=== PATIENT | female | born 1965 | race Caucasian/White ===

== ENCOUNTER 2018-03-12 01:28 | Emergency (ER) | payer OTHER ==
[~2018-03-12] VITALS: Ht 154.9 cm; Wt 146.5 kg
[~2018-03-12 01:28] MED LIST: ALEVE220 M2 PO; ANTIVERT25 MG PO; ASPIR 8181 M1 PO; ATENOLOL50 MG PO; ATIVAN0.5 MG PO; BACTRIM,SEPT1 TABLET PO; BENADRYL25 MG PO; BENTYL10 MG PO; CIPRO500 MG PO; CLARITIN,ALAVAR10 MG PO; COLACE100 MG PO; CYMBALTA60 MG PO; DULOXETINE HCL60 MG PO; FIORICET 50-301 EACH PO; FLEXERIL10 MG PO; GABAPENTIN300 MG PO; GLUCOPHAGE500 MG PO; HYDROCHLOROTHIA25 MG PO; IBUPROFEN800 MG PO; KLOR-CON M2020 MEQ PO; LEVAQUIN750 MG PO; LORAZEPAM0.5 MG PO; METFORMIN HCL500 M1 PO; MOBIC15 MG PO; MOBIC7.5 MG PO; MOTRIN600 MG PO; MOTRIN800 MG PO; NEURONTIN100 MG PO; NEURONTIN300 MG PO; NORCO 5/3251 TABLET PO; NORCO 7.5/321 TABLET PO; OMEPRAZOLE40 M1 PO; PERCOCET 5/31 TABLET PO; PREDNISONE50 MG PO; PROAIR HFA8.5 GM IH; PROTONIX40 MG PO; REMERON15 M2 PO; REMERON30 M2 PO; ROXICODONE5 MG PO; SKELAXIN800 MG PO; SYMBICORT60 INHALA1 IH; ULTRAM50 MG PO; VALIUM5 MG PO; VOLTAREN75 MG PO; ZOFRAN ODT4 MG PO
[2018-03-12 05:09] LABS: HEMATOCRIT 36.9 % (36.0-46.0); HEMOGLOBIN 12.2 G/DL (11.9-15.5); MCHC 33.1 G/DL (30.0-36.0); MCV 87.6 FL (83-99); PLATELET COUNT 280 K/uL (156-360); RBC DIS.WIDTH-CV 13.2 % (11.8-14.6); RBC DIS.WIDTH-SD 41.9 % (39-53); RED BLOOD COUNT 4.21 M/uL (3.80-5.20); WHITE BLOOD COUNT 9.5 K/uL (4.1-10.2)
[2018-03-12 05:21] LABS: CHLORIDE 103 mEq/L (99-109); POTASSIUM 2.8 mEq/L (3.7-5.4); SODIUM 142 mEq/L (136-147)
[2018-03-12 05:23] LABS: GLUCOSE 167 mg/dL (70-99)
[2018-03-12 05:27] LABS: CREATININE 0.7 mg/dL (0.6-1.3); GFR ESTIMATE (CALCULATED) > 59 mL/min/; UREA NITROGEN (BUN) 20 mg/dL (9-23)
[2018-03-12 06:01] VITALS: BP 106/76
[2018-03-12] MEDS ORDERED: PERCOCET 5/31 TABLET PO (06:18)
[2018-03-12] MEDS ORDERED: LIDOCARE1 EACH TP (06:18)
== END 2018-03-12 06:01 | disposition home or self-care (01) ==
LOC: EME 01:28
PROVIDERS: Emergency Medicine
DX: M25.552 Pain in left hip (principal); E87.6 Hypokalemia; R19.7 Diarrhea, unspecified; W01.0XXA Fall on same level from slipping, tripping and stumbling without subsequent striking against object, initial encounter; Y92.512 Supermarket, store or market as the place of occurrence of the external cause; E11.9 Type 2 diabetes mellitus without complications; Z79.84 Long term (current) use of oral hypoglycemic drugs; I10 Essential (primary) hypertension; G89.29 Other chronic pain; F32.9 Major depressive disorder, single episode, unspecified; F41.9 Anxiety disorder, unspecified; Z87.891 Personal history of nicotine dependence; Z90.49 Acquired absence of other specified parts of digestive tract
CPT/HCPCS: 72192; 73502; 80048; 85027; 99281; 99284

== ENCOUNTER 2018-06-21 00:32 | Emergency (ER) | payer OTHER ==
[~2018-06-21] VITALS: Ht 154.9 cm; Wt 143.3 kg
[~2018-06-21 00:32] MED LIST changes: +LIDOCARE1 EACH TP
[2018-06-21] MEDS ORDERED: VALIUM5 MG PO (04:01)
[2018-06-21] MEDS ORDERED: PREDNISONE50 MG PO (04:01)
[2018-06-21] MEDS ORDERED: IBU600 MG PO (04:01)
[2018-06-21 04:20] VITALS: BP 134/75
== END 2018-06-21 04:23 | disposition home or self-care (01) ==
LOC: EME 00:32
DX: M54.16 Radiculopathy, lumbar region (principal); G89.29 Other chronic pain; E11.9 Type 2 diabetes mellitus without complications; Z79.84 Long term (current) use of oral hypoglycemic drugs; I10 Essential (primary) hypertension; F32.9 Major depressive disorder, single episode, unspecified; F41.9 Anxiety disorder, unspecified; M81.0 Age-related osteoporosis without current pathological fracture; Z87.891 Personal history of nicotine dependence
CPT/HCPCS: 99281; 99285; J1885; J7512